=== PATIENT | female | born 1990 | race African-American/Black ===

== ENCOUNTER 2017-05-23 15:33 | Emergency (ER) | payer MEDICAID ==
[~2017-05-23] VITALS: Ht 175.3 cm; Wt 87.0 kg
[2017-05-23 15:45] VITALS: BP 134/88
== END 2017-05-23 20:59 | disposition left against medical advice (07) ==
LOC: ER 15:45
DX: Z53.21 Procedure and treatment not carried out due to patient leaving prior to being seen by health care provider (principal)